=== PATIENT | male | born 1980 | race Caucasian/White ===

== ENCOUNTER 2016-05-22 23:58 | Emergency (ER) | payer BC ==
[2016-05-23] MEDS ORDERED: IBUPROFEN 800 MG TAB As Ordered ONE (00:28)
[2016-05-23] MEDS ORDERED: AZITHROMYCIN 250 MG TAB As Ordered ONE (00:45)
--- NOTE | 2016-05-23 00:50 | EDDOCDS ---
Nurse's Notes [facility] Name: Sp Valenzuela Age: 36 yrs Sex: Male : 1980 Arrival Date: 05/22/2016 Time: 23:58 Bed I2 / M2 Private MD: Diagnosis: Acute bronchitis Presentation: 05/23 00:12 Presenting complaint: Patient states: Cough and congestion that has been ongoing for 5 lf1 days. Pt denies pain. Adult Sepsis Screening: The patient does not have new or worsening altered mentation. Patient's respiratory rate is less than 22. Systolic blood pressure is greater than 100. Patient has a qSOFA score of 0- Negative Sepsis Screen. Suicide/Homicide risk assessment- the patient denies having any suicidal and/or homicidal ideations and does not present with any other emotional, behavioral or mental health complaints. Status: Patient is not a business services associate or dependent. Transition of care: patient was not received from another setting of care. 00:12 Acuity: HAYDEN Level 4 lf1 00:12 Method Of Arrival: Walkin/Carried/Asstd lf1 Triage Assessment: 00:16 General: Appears in no apparent distress, comfortable, Behavior is cooperative. Pain: lf1 Denies pain. HIV screening NA for this visit Offered previously. Neurological: Level of Consciousness is awake, alert, Oriented to person, place, time. EENT: Reports nasal congestion. Respiratory: Onset: The symptoms/episode began/occurred 5 days ago. GI: Denies nausea, vomiting. Derm: Skin is normal. Injury Description: No known injury. Historical: - Allergies: No known drug Allergies; - Home Meds: 1. Tussin 100 mg/5 mL oral syrp 10 mL every 4 hours (Last dose: 05/22/2016 20:00) - PMHx: none; - PSHx: left elbow; - Social history: Smoking status: Patient uses tobacco products, current every day smoker. No barriers to communication noted, The patient speaks fluent Khmer, Speaks appropriately for age, Preferred Language: Khmer. - Family history: No immediate family members are acutely ill. - : The pt / caregiver states he / she is not on anticoagulants. Home medication list is obtained from the patient. - Exposure Risk Screening:: None identified. Screenin:18 Screening information is obtained from the patient. Fall risk: No risks identified. lf1 Assistance ADL's: requires no assistance with activities of daily living. Abuse/DV Screen: The patient / caregiver reports he/she is: not in a situation that causes fear, pain or injury. Nutritional screening: No deficits noted. Advance Directives: Currently, there is no health care proxy. There is no active DNR order. There is no living will. home support is adequate. Assessment: 00:23 General: Appears in no apparent distress, Behavior is appropriate for age, cooperative. nn1 General: Patient reports feeling ill for 5 days. Patient reports no relief with Robitussin, states hes had fever since earlier today, last dose of Tylenol at noon yesterday. Denies recent travels. . Neurological: Level of Consciousness is awake, alert. Cardiovascular: Capillary refill < 3 seconds Heart tones S1 S2 present. Respiratory: Airway is patent Respiratory effort is even, unlabored, Respiratory pattern is regular, symmetrical, Breath sounds are clear bilaterally. Reports cough that is productive, producing green mucus. Reports feeling chest congestion. Denies patient denies sore throat/chills. GI: No deficits noted. Derm: Skin is pink, warm & dry. Vital Signs: 00:16 BP 122 / 80; Pulse 89; Resp 16; Temp 101.0; Pulse Ox 97% on R/A; Weight 50.8 kg (R); lf1 Height 5 ft. 3 in. (160.02 cm) (R); Pain 0/10; 00:48 Temp 100(TE); nn1 00:16 Body Mass Index 19.84 (50.80 kg, 160.02 cm) [facility] Vitals: 00:16 Log In Time: May 22, 2016 at 23:59. [facility] ED Course: 05/22 23:59 Patient visited by Rita Leavitt Reg. hs2 23:59 Patient moved to Waiting hs2 05/23 00:15 Triage Initiated lf1 00:16 Anthony Loyd PA is PHCP. mo1 00:16 Ike Cruz MD is Attending Physician. mo1 00:18 Patient moved to I2 / M2 1 00:23 Patient visited by Anthony Loyd PA. mo1 00:43 [facility] Payment Agreement was scanned into [employer] and attached to record. pm4 00:48 The patient / caregiver is instructed regarding the plan of care and ED course. nn1 00:48 No IV's were initiated during this patient's visit. No procedures done that require nn1 assistance. Administered Medications: 00:30 Drug: Ibuprofen 800 mg [ibuprofen 400 mg tablet (2 tabs)] Route: PO; nn1 00:47 Drug: azithromycin 500 mg [azithromycin 250 mg tablet (2 tabs)] Route: PO; nn1 Order Results: There are currently no results for this order. Outcome: 00:43 Discharge ordered by Provider. mo1 00:48 Discharge Assessment: Patient awake, alert and oriented x 3. No cognitive and/or nn1 functional deficits noted. Patient verbalized understanding of disposition instructions. patient administered narcotics - no. The following High Risk Discharge criteria are identified: None. Discharged to home ambulatory. Condition: stable. Prescriptions given X 2, Work note provided to patient. No special radiology studies were completed. Property :Personal belongings accompany Pt. 00:49 Patient left the ED. nn1 Signatures: Marry FloresRN RN lf1 Anthony Loyd PA PA mo1 Julienne Huston RN RN nn1 Rita Leavitt, Reg Reg hs2 Josué Anderson, Reg Reg pm4 IVY
--- NOTE | 2016-05-23 00:50 | EDDOCDS ---
Physician Documentation [facility] Name: Sp Valenzuela Age: 36 yrs Sex: Male : 1980 Arrival Date: 05/22/2016 Time: 23:58 Bed I2 / M2 Private MD: Disposition: 05/23/16 00:43 Discharged to Home/Self Care. Impression: Acute bronchitis. - Condition is Stable. - Discharge Instructions: Acute Bronchitis. - Prescriptions for Zithromax Z- Jose Daniel 250 mg Oral Tablet - take 1 tablet by ORAL route as directed for 5 days Day 1- take two tablets once. Day 2, 3, 4 , 5 take one tablet once daily.; 6 tablet. Albuterol Sulfate 90 mcg/actuation Inhalation HFA Aerosol Inhaler - inhale 2 puff by INHALATION route every 4 hours As needed; 1 Inhaler. - Medication Reconciliation, Work Release Form - 2 day, Local Pharmacy Hours form. - Follow up: Private Physician; When: Call to arrange an appointment; Reason: Recheck today's complaints, Continuance of care. - Problem is new. - Symptoms are unchanged. Historical: - Allergies: No known drug Allergies; - Home Meds: 1. Tussin 100 mg/5 mL oral syrp 10 mL every 4 hours (Last dose: 05/22/2016 20:00) - PMHx: none; - PSHx: left elbow; - Social history: Smoking status: Patient uses tobacco products, current every day smoker. No barriers to communication noted, The patient speaks fluent Anguillan, Speaks appropriately for age, Preferred Language: Anguillan. - Family history: No immediate family members are acutely ill. - : The pt / caregiver states he / she is not on anticoagulants. Home medication list is obtained from the patient. - Exposure Risk Screening:: None identified. Vital Signs: 05/23 00:16 BP 122 / 80; Pulse 89; Resp 16; Temp 101.0; Pulse Ox 97% on R/A; Weight 50.8 kg / lf1 111.99 lbs (R); Height 5 ft. 3 in. (160.02 cm) (R); Pain 0/10; 00:48 Temp 100(TE); nn1 00:16 Body Mass Index 19.84 (50.80 kg, 160.02 cm) lf1 MDM: 00:23 Ibuprofen 800 mg PO once ordered. mo1 00:25 Chest, 2 View (pa\E\lat) Ordered. EDMS 00:31 Financial registration complete. pm4 00:42 azithromycin 500 mg PO once ordered. mo1 00:43 [facility] Payment Agreement was scanned into [employer] and attached to record. pm4 Administered Medications: 00:30 Drug: Ibuprofen 800 mg [ibuprofen 400 mg tablet (2 tabs)] Route: PO; nn1 00:47 Drug: azithromycin 500 mg [azithromycin 250 mg tablet (2 tabs)] Route: PO; nn1 Signatures: Dispatcher [employer] EDMS Marry FloresRN RN lf1 Anthony Loyd PA PA mo1 Julienne Huston RN RN nn1 Josué Anderson, Reg Reg pm4 The chart was reviewed and I authenticate all verbal orders and agree with the evaluation and treatment provided.Attachments: 00:43 [facility] Payment Agreement pm4 MTDD
--- NOTE | 2016-05-23 01:06 | REP ---
Clinical: Acute cough. Technique: PA and lateral. Comparison: 08/03/2010. Findings: A subtle veil of opacity involving the medial right lung base and possibly right middle lobe is suggested. No further consolidation, effusion, or pneumothorax. Mediastinum and cardiac silhouette are normal. Impression: Cannot exclude subtle right basilar / right middle lobe atelectasis. Signed by Hayder Koenig MD 05/23/2016 12:56 A
--- NOTE | 2016-05-25 01:50 | EDDOCDS ---
Physician Documentation [facility] Name: Sp Valenzuela Age: 36 yrs Sex: Male : 1980 Arrival Date: 05/22/2016 Time: 23:58 Bed I2 / M2 Private MD: Disposition: 05/23/16 00:43 Discharged to Home/Self Care. Impression: Acute bronchitis. - Condition is Stable. - Discharge Instructions: Acute Bronchitis. - Prescriptions for Zithromax Z- Jose Daniel 250 mg Oral Tablet - take 1 tablet by ORAL route as directed for 5 days Day 1- take two tablets once. Day 2, 3, 4 , 5 take one tablet once daily.; 6 tablet. Albuterol Sulfate 90 mcg/actuation Inhalation HFA Aerosol Inhaler - inhale 2 puff by INHALATION route every 4 hours As needed; 1 Inhaler. - Medication Reconciliation, Work Release Form - 2 day, Local Pharmacy Hours form. - Follow up: Private Physician; When: Call to arrange an appointment; Reason: Recheck today's complaints, Continuance of care. - Problem is new. - Symptoms are unchanged. Historical: - Allergies: No known drug Allergies; - Home Meds: 1. Tussin 100 mg/5 mL oral syrp 10 mL every 4 hours (Last dose: 05/22/2016 20:00) - PMHx: none; - PSHx: left elbow; - Social history: Smoking status: Patient uses tobacco products, current every day smoker. No barriers to communication noted, The patient speaks fluent Costa Rican, Speaks appropriately for age, Preferred Language: [place] Rican. - Family history: No immediate family members are acutely ill. - : The pt / caregiver states he / she is not on anticoagulants. Home medication list is obtained from the patient. - Exposure Risk Screening:: None identified. Vital Signs: 05/23 00:16 BP 122 / 80; Pulse 89; Resp 16; Temp 101.0; Pulse Ox 97% on R/A; Weight 50.8 kg / lf1 111.99 lbs (R); Height 5 ft. 3 in. (160.02 cm) (R); Pain 0/10; 00:48 Temp 100(TE); nn1 00:16 Body Mass Index 19.84 (50.80 kg, 160.02 cm) lf1 MDM: 00:23 Ibuprofen 800 mg PO once ordered. mo1 00:25 Chest, 2 View (pa\E\lat) Ordered. EDMS 00:31 Financial registration complete. pm4 00:42 azithromycin 500 mg PO once ordered. mo1 00:43 [facility] Payment Agreement was scanned into [employer] and attached to record. pm4 02:21 T-Sheet-- Draft Copy was scanned into [employer] and attached to record. hs2 Administered Medications: 00:30 Drug: Ibuprofen 800 mg [ibuprofen 400 mg tablet (2 tabs)] Route: PO; nn1 00:47 Drug: azithromycin 500 mg [azithromycin 250 mg tablet (2 tabs)] Route: PO; nn1 Signatures: Dispatcher [employer] EDMS Marry FloresRN RN lf1 Anthony Loyd PA PA mo1 Julienne HustonRN RN nn1 Rita Leavitt, Reg Reg hs2 Josué Anderson, Reg Reg pm4 The chart was reviewed and I authenticate all verbal orders and agree with the evaluation and treatment provided.Attachments: 00:43 [facility] Payment Agreement pm4 02:21 T-Sheet-- Draft Copy hs2 Chart Complete MTDD
--- NOTE | 2016-05-25 01:50 | EDDOCDS ---
Nurse's Notes [facility] Name: Sp Valenzuela Age: 36 yrs Sex: Male : 1980 Arrival Date: 05/22/2016 Time: 23:58 Bed I2 / M2 Private MD: Diagnosis: Acute bronchitis Presentation: 05/23 00:12 Presenting complaint: Patient states: Cough and congestion that has been ongoing for 5 lf1 days. Pt denies pain. Adult Sepsis Screening: The patient does not have new or worsening altered mentation. Patient's respiratory rate is less than 22. Systolic blood pressure is greater than 100. Patient has a qSOFA score of 0- Negative Sepsis Screen. Suicide/Homicide risk assessment- the patient denies having any suicidal and/or homicidal ideations and does not present with any other emotional, behavioral or mental health complaints. Status: Patient is not a utility service worker or dependent. Transition of care: patient was not received from another setting of care. 00:12 Acuity: HAYDEN Level 4 lf1 00:12 Method Of Arrival: Walkin/Carried/Asstd lf1 Triage Assessment: 00:16 General: Appears in no apparent distress, comfortable, Behavior is cooperative. Pain: lf1 Denies pain. HIV screening NA for this visit Offered previously. Neurological: Level of Consciousness is awake, alert, Oriented to person, place, time. EENT: Reports nasal congestion. Respiratory: Onset: The symptoms/episode began/occurred 5 days ago. GI: Denies nausea, vomiting. Derm: Skin is normal. Injury Description: No known injury. Historical: - Allergies: No known drug Allergies; - Home Meds: 1. Tussin 100 mg/5 mL oral syrp 10 mL every 4 hours (Last dose: 05/22/2016 20:00) - PMHx: none; - PSHx: left elbow; - Social history: Smoking status: Patient uses tobacco products, current every day smoker. No barriers to communication noted, The patient speaks fluent Bulgarian, Speaks appropriately for age, Preferred Language: Bulgarian. - Family history: No immediate family members are acutely ill. - : The pt / caregiver states he / she is not on anticoagulants. Home medication list is obtained from the patient. - Exposure Risk Screening:: None identified. Screenin:18 Screening information is obtained from the patient. Fall risk: No risks identified. lf1 Assistance ADL's: requires no assistance with activities of daily living. Abuse/DV Screen: The patient / caregiver reports he/she is: not in a situation that causes fear, pain or injury. Nutritional screening: No deficits noted. Advance Directives: Currently, there is no health care proxy. There is no active DNR order. There is no living will. home support is adequate. Assessment: 00:23 General: Appears in no apparent distress, Behavior is appropriate for age, cooperative. nn1 General: Patient reports feeling ill for 5 days. Patient reports no relief with Robitussin, states hes had fever since earlier today, last dose of Tylenol at noon yesterday. Denies recent travels. . Neurological: Level of Consciousness is awake, alert. Cardiovascular: Capillary refill < 3 seconds Heart tones S1 S2 present. Respiratory: Airway is patent Respiratory effort is even, unlabored, Respiratory pattern is regular, symmetrical, Breath sounds are clear bilaterally. Reports cough that is productive, producing green mucus. Reports feeling chest congestion. Denies patient denies sore throat/chills. GI: No deficits noted. Derm: Skin is pink, warm & dry. Vital Signs: 00:16 BP 122 / 80; Pulse 89; Resp 16; Temp 101.0; Pulse Ox 97% on R/A; Weight 50.8 kg (R); lf1 Height 5 ft. 3 in. (160.02 cm) (R); Pain 0/10; 00:48 Temp 100(TE); nn1 00:16 Body Mass Index 19.84 (50.80 kg, 160.02 cm) [facility] Vitals: 00:16 Log In Time: May 22, 2016 at 23:59. [facility] ED Course: 05/22 23:59 Patient visited by Rita Leavitt Reg. hs2 23:59 Patient moved to Waiting hs2 05/23 00:15 Triage Initiated lf1 00:16 Anthony Loyd PA is PHCP. mo1 00:16 Ike Cruz MD is Attending Physician. mo1 00:18 Patient moved to I2 / M2 1 00:23 Patient visited by Anthony Loyd PA. mo1 00:43 [facility] Payment Agreement was scanned into [employer] and attached to record. pm4 00:48 The patient / caregiver is instructed regarding the plan of care and ED course. nn1 00:48 No IV's were initiated during this patient's visit. No procedures done that require nn1 assistance. 01:37 Chest, 2 View (pa\E\lat) Returned. EDGA 02:21 T-Sheet-- Draft Copy was scanned into [employer] and attached to record. hs2 Administered Medications: 00:30 Drug: Ibuprofen 800 mg [ibuprofen 400 mg tablet (2 tabs)] Route: PO; nn1 00:47 Drug: azithromycin 500 mg [azithromycin 250 mg tablet (2 tabs)] Route: PO; nn1 Order Results: Radiology Order: Chest, 2 View (pa\E\lat) Test: Chest, 2 View (pa\E\lat) REASON FOR EXAMINATION: Cough; Clinical: Acute cough.; ; Technique: PA and lateral.; ; Comparison: 08/03/2010.; ; Findings:; A subtle veil of opacity involving the medial right lung base and possibly right; middle lobe is suggested. No further consolidation, effusion, or pneumothorax.; Mediastinum and cardiac silhouette are normal.; ; Impression:; Cannot exclude subtle right basilar / right middle lobe atelectasis.; ; ; Signed by; Hayder Koenig MD 05/23/2016 12:56 A; Outcome: 00:43 Discharge ordered by Provider. mo1 00:48 Discharge Assessment: Patient awake, alert and oriented x 3. No cognitive and/or nn1 functional deficits noted. Patient verbalized understanding of disposition instructions. patient administered narcotics - no. The following High Risk Discharge criteria are identified: None. Discharged to home ambulatory. Condition: stable. Prescriptions given X 2, Work note provided to patient. No special radiology studies were completed. Property :Personal belongings accompany Pt. 00:49 Patient left the ED. nn1 Signatures: [facility] Marry Flores RN RN lf1 Anthony Loyd PA PA mo1 Julienne Huston RN RN nn1 Rita Leavitt, Reg Reg hs2 Josué Anderson, Reg Reg pm4 Chart Complete MTDD
--- NOTE | 2016-05-25 01:50 | EDDOCDS ---
Physician Documentation [facility] Name: Sp Valenzuela Age: 36 yrs Sex: Male : 1980 Arrival Date: 05/22/2016 Time: 23:58 Bed I2 / M2 Private MD: Disposition: 05/23/16 00:43 Discharged to Home/Self Care. Impression: Acute bronchitis. - Condition is Stable. - Discharge Instructions: Acute Bronchitis. - Prescriptions for Zithromax Z- Jose Daniel 250 mg Oral Tablet - take 1 tablet by ORAL route as directed for 5 days Day 1- take two tablets once. Day 2, 3, 4 , 5 take one tablet once daily.; 6 tablet. Albuterol Sulfate 90 mcg/actuation Inhalation HFA Aerosol Inhaler - inhale 2 puff by INHALATION route every 4 hours As needed; 1 Inhaler. - Medication Reconciliation, Work Release Form - 2 day, Local Pharmacy Hours form. - Follow up: Private Physician; When: Call to arrange an appointment; Reason: Recheck today's complaints, Continuance of care. - Problem is new. - Symptoms are unchanged. Historical: - Allergies: No known drug Allergies; - Home Meds: 1. Tussin 100 mg/5 mL oral syrp 10 mL every 4 hours (Last dose: 05/22/2016 20:00) - PMHx: none; - PSHx: left elbow; - Social history: Smoking status: Patient uses tobacco products, current every day smoker. No barriers to communication noted, The patient speaks fluent Tuvaluan, Speaks appropriately for age, Preferred Language: Tuvaluan. - Family history: No immediate family members are acutely ill. - : The pt / caregiver states he / she is not on anticoagulants. Home medication list is obtained from the patient. - Exposure Risk Screening:: None identified. Vital Signs: 05/23 00:16 BP 122 / 80; Pulse 89; Resp 16; Temp 101.0; Pulse Ox 97% on R/A; Weight 50.8 kg / lf1 111.99 lbs (R); Height 5 ft. 3 in. (160.02 cm) (R); Pain 0/10; 00:48 Temp 100(TE); nn1 00:16 Body Mass Index 19.84 (50.80 kg, 160.02 cm) lf1 MDM: 00:23 Ibuprofen 800 mg PO once ordered. mo1 00:25 Chest, 2 View (pa\E\lat) Ordered. EDMS 00:31 Financial registration complete. pm4 00:42 azithromycin 500 mg PO once ordered. mo1 00:43 [facility] Payment Agreement was scanned into [employer] and attached to record. pm4 02:21 T-Sheet-- Draft Copy was scanned into [employer] and attached to record. hs2 Administered Medications: 00:30 Drug: Ibuprofen 800 mg [ibuprofen 400 mg tablet (2 tabs)] Route: PO; nn1 00:47 Drug: azithromycin 500 mg [azithromycin 250 mg tablet (2 tabs)] Route: PO; nn1 Signatures: Dispatcher [employer] EDMS Marry FloresRN RN lf1 Anthony Loyd PA PA mo1 Julienne HustonRN RN nn1 Rita Leavitt, Reg Reg hs2 Josué Anderson, Reg Reg pm4 The chart was reviewed and I authenticate all verbal orders and agree with the evaluation and treatment provided.Attachments: 00:43 [facility] Payment Agreement pm4 02:21 T-Sheet-- Draft Copy hs2 Chart Complete MTDD
== END 2016-05-23 00:49 | disposition home or self-care (01) ==
LOC: M ED 23:58
DX: J20.9 Acute bronchitis, unspecified (principal); F17.200 Nicotine dependence, unspecified, uncomplicated

== ENCOUNTER 2022-05-07 22:17 | Emergency (ER) | payer BC ==
[~2022-05-07] VITALS: Ht 160 cm; Wt 58.8 kg
[2022-05-07 22:18] VITALS: BP 131/66
== END 2022-05-08 01:42 | disposition left against medical advice (07) ==
LOC: M ED 22:17
DX: Z53.21 Procedure and treatment not carried out due to patient leaving prior to being seen by health care provider (principal)

== ENCOUNTER 2024-02-16 05:28 | Emergency (ER) | payer BC, OTHER ==
[~2024-02-16] VITALS: Ht 160 cm; Wt 56.1 kg
[2024-02-16 06:18] LABS: APPEARANCE, URINE CLEAR (CLEAR); BACTERIA, URINE AUTO NEGATIVE (NEGATIVE); BILIRUBIN, URINE AUTO NEGATIVE (NEGATIVE); BLOOD, URINE BLOOD 1+ (NEGATIVE); COLOR, URINE YELLOW (YELLOW); GLUCOSE, URINE (UA) AUTO NEGATIVE (NEGATIVE); KETONE, URINE AUTO NEGATIVE (NEGATIVE); LEUKOCYTE ESTERASE, URINE AUTO NEGATIVE (NEGATIVE); MUCUS, URINE SMALL (NEGATIVE); NITRITE, URINE AUTO NEGATIVE (NEGATIVE); PROTEIN, URINE AUTO NEGATIVE (NEGATIVE); RBC, URINE AUTO 0 /HPF (0-3); SPECIFIC GRAVITY URINE AUTO 1.017 (1.002-1.035); SQUAMOUS EPITHELIAL CELL UR AU 0 /HPF (0-6); UROBILINOGEN, URINE AUTO 0.2 mg/dL (0.0-2.0); WBC, URINE AUTO 0 /HPF (0-3)
[2024-02-16 08:19] LABS: BASO # 0.1 10^3/uL (0.0-0.2); BASO % 0.8 % (0.0-1.0); EOS # 0.4 10^3/uL (0.0-0.5); EOS % 4.2 % (0.0-3.0); HEMATOCRIT 42.8 % (42.0-52.0); HEMOGLOBIN 15.5 g/dl (13.5-17.5); LYMPH # 2.3 10^3/uL (1.5-5.0); LYMPH % 26.8 % (24.0-44.0); MEAN CORPUSCULAR HGB CONC 36.2 g/dl (32.0-36.5); MEAN CORPUSCULAR VOLUME 99.3 fl (80.0-96.0); MONO # 0.4 10^3/uL (0.0-0.8); MONO % 5.1 % (2.0-8.0); NEUTROPHILS # 5.4 10^3/uL (1.5-8.5); NEUTROPHILS % 62.8 % (36.0-66.0); PLATELET COUNT, AUTOMATED 331 10^3/uL (150-450); RED BLOOD COUNT 4.31 10^6/uL (4.30-6.10); WHITE BLOOD COUNT 8.6 10^3/uL (4.0-10.0)
[2024-02-16 08:46] LABS: BLOOD UREA NITROGEN 10 MG/DL (9-23); CALCIUM LEVEL 9.6 MG/DL (8.5-10.1); CARBON DIOXIDE LEVEL 29 MMOL/L (20-31); CHLORIDE LEVEL 109 MMOL/L (98-107); CREATININE FOR GFR 0.76 MG/DL (0.70-1.30); GLOMERULAR FILTRATION RATE > 60.0 (>60); GLUCOSE, FASTING 81 MG/DL (60-100); POTASSIUM SERUM 4.5 MMOL/L (3.5-5.1); SODIUM LEVEL 140 MMOL/L (136-145)
[2024-02-16] MEDS: KETOROLAC 30 MG/ML 1ML VIAL IV ONE (08:56)
[2024-02-16] MEDS: diazePAM 10MG/2ML SYRINGE IV ONE (08:56)
[2024-02-16] MEDS: LIDOCAINE 5% (LIDODERM) PATCH TD ONE (08:56)
[2024-02-16] MEDS ORDERED: ASPE4PAD TOP (09:40)
[2024-02-16] MEDS ORDERED: METH-1165 PO (09:40)
[2024-02-16 10:21] VITALS: BP 148/66; TEMP 97.7; O2SAT 99
== END 2024-02-16 10:24 | disposition home or self-care (01) ==
LOC: M ED 05:28
DX: M54.50 Low back pain, unspecified (principal); N26.1 Atrophy of kidney (terminal); K59.00 Constipation, unspecified; Z79.899 Other long term (current) drug therapy
CPT/HCPCS: 74176; 80048; 81001; 85025; 96374; 99284; J1885; J3360

== ENCOUNTER → 2024-02-26 | Outpatient (REF) | payer OTHER ==
[~2024-02-26] MED LIST: ASPE4PAD TOP; METH-1165 PO
[2024-02-26 13:11] LABS: BASO # 0.1 10^3/uL (0.0-0.2); EOS # 0.4 10^3/uL (0.0-0.5); EOS % 5.2 % (0.0-3.0); HEMOGLOBIN 15.4 g/dl (13.5-17.5); LYMPH # 2.3 10^3/uL (1.5-5.0); LYMPH % 31.8 % (24.0-44.0); MEAN CORPUSCULAR HEMOGLOBIN 33.8 pg (27.0-33.0); MEAN CORPUSCULAR HGB CONC 34.2 g/dl (32.0-36.5); MEAN CORPUSCULAR VOLUME 98.7 fl (80.0-96.0); MONO # 0.4 10^3/uL (0.0-0.8); MONO % 5.9 % (2.0-8.0); NEUTROPHILS # 4.1 10^3/uL (1.5-8.5); PLATELET COUNT, AUTOMATED 353 10^3/uL (150-450); RED BLOOD COUNT 4.56 10^6/uL (4.30-6.10); WHITE BLOOD COUNT 7.3 10^3/uL (4.0-10.0)
[2024-02-26 13:12] LABS: APPEARANCE, URINE CLEAR (CLEAR); BACTERIA, URINE AUTO NEGATIVE (NEGATIVE); BILIRUBIN, URINE AUTO NEGATIVE (NEGATIVE); BLOOD, URINE BLOOD NEGATIVE (NEGATIVE); COLOR, URINE YELLOW (YELLOW); GLUCOSE, URINE (UA) AUTO NEGATIVE (NEGATIVE); KETONE, URINE AUTO NEGATIVE (NEGATIVE); LEUKOCYTE ESTERASE, URINE AUTO NEGATIVE (NEGATIVE); NITRITE, URINE AUTO NEGATIVE (NEGATIVE); PROTEIN, URINE AUTO NEGATIVE (NEGATIVE); RBC, URINE AUTO 0 /HPF (0-3); SPECIFIC GRAVITY URINE AUTO 1.013 (1.002-1.035); SQUAMOUS EPITHELIAL CELL UR AU 0 /HPF (0-6); UROBILINOGEN, URINE AUTO 0.2 mg/dL (0.0-2.0); WBC, URINE AUTO 0 /HPF (0-3)
[2024-02-26 13:15] LABS: ALBUMIN 4.1 G/DL (3.2-5.2); ALKALINE PHOSPHATASE 105 U/L (40-129); ALT/SGPT 22 U/L (7.0-40); AST/SGOT 19 U/L (<34); BILIRUBIN,TOTAL 0.6 MG/DL (0.3-1.2); BLOOD UREA NITROGEN 9 MG/DL (9-23); CALCIUM LEVEL 10.2 MG/DL (8.5-10.1); CARBON DIOXIDE LEVEL 32 MMOL/L (20-31); CHLORIDE LEVEL 107 MMOL/L (98-107); CHOLESTEROL LEVEL 185 MG/DL (<200); CHOLESTEROL RISK RATIO 3.81 (<5); GLOMERULAR FILTRATION RATE > 60.0 (>60); GLUCOSE, FASTING 90 MG/DL (60-100); HDL CHOLESTEROL 48.5 MG/DL (>40); LDL CHOLESTEROL 123.7 MG/DL (<100); NON-HDL-C 136.5 MG/DL; POTASSIUM SERUM 4.5 MMOL/L (3.5-5.1); SODIUM LEVEL 140 MMOL/L (136-145); TOTAL PROTEIN 7.3 G/DL (5.7-8.2); TRIGLYCERIDES LEVEL 64 MG/DL (<150)
[2024-02-26 13:18] LABS: THYROID STIMULATING HORMONE 0.624 uIU/ML (0.55-4.78)
[2024-02-26 13:19] LABS: FREE T4 1.11 NG/DL (0.89-1.76)
== END ==
LOC: M SFHCPLAZ 10:03
PROVIDERS: ATTEND Student in an Organized Health Care Education/Training Program
DX: Z76.89 Persons encountering health services in other specified circumstances (principal); Z13.1 Encounter for screening for diabetes mellitus; Z13.220 Encounter for screening for lipoid disorders; Z13.29 Encounter for screening for other suspected endocrine disorder; R31.29 Other microscopic hematuria

== ENCOUNTER → 2025-03-03 | Outpatient (REF) | payer OTHER ==
[2025-03-03 14:24] LABS: FREE T4 1.10 NG/DL (0.89-1.76)
[2025-03-03 14:26] LABS: PLATELET COUNT, AUTOMATED 297 10^3/uL (150-450)
[2025-03-03 14:27] LABS: ALT/SGPT 17 U/L (7.0-40); AST/SGOT 17 U/L (<34); CALCIUM LEVEL 9.8 MG/DL (8.5-10.1); CARBON DIOXIDE LEVEL 26 MMOL/L (20-31); CHLORIDE LEVEL 105 MMOL/L (98-107); CHOLESTEROL LEVEL 192 MG/DL (<200); CHOLESTEROL RISK RATIO 4.01 (<5); CREATININE FOR GFR 0.83 MG/DL (0.70-1.30); GLOMERULAR FILTRATION RATE > 90.0 (>60); LDL CHOLESTEROL 128.2 MG/DL (<100); NON-HDL-C 144.2 MG/DL; POTASSIUM SERUM 4.3 MMOL/L (3.5-5.1); SODIUM LEVEL 141 MMOL/L (136-145); TRIGLYCERIDES LEVEL 80 MG/DL (<150)
[2025-03-03 14:40] LABS: ESTIMATED AVERAGE GLUCOSE 97.0 MG/DL (60-110)
== END ==
LOC: M SFHCPLAZ 09:28
PROVIDERS: ATTEND Family Medicine
DX: Z00.00 Encounter for general adult medical examination without abnormal findings (principal)